=== PATIENT | female | born 1970 | race African-American/Black ===

== ENCOUNTER 2024-11-10 17:31 | Emergency (ER) | payer OTHER, MEDICAID ==
[~2024-11-10] VITALS: Ht 170.2 cm; Wt 87.0 kg
[2024-11-10] MEDS: ACETAMINOPHEN 325 MG TAB PO ONE (19:20)
[2024-11-10] MEDS ORDERED: ACET500T58 PO (19:21)
[2024-11-10] MEDS ORDERED: CYCL-837 PO (19:21)
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
--- NOTE | 2024-11-10 20:22 | DVH ---
EXAM: CT HEAD WITHOUT CONTRAST INDICATION: head injury TECHNIQUE: CT of the head without intravenous contrast. Radiation Dose Information: CT Dose: CTDI volume is 21.13 mGy. Dose-length product is 1589.92 mGy*cm The dose indicators for CT are the volume Computed Tomography (CT) Dose Index (CTDIvol) and the Dose Length Product (DLP), and are measured in units of mGy and mGy-cm, respectively. These indicators are not patient dose, but values generated from the CT scanner acquisition factors. The report includes radiation exposure data for exposures received during this examination. COMPARISON: None FINDINGS: There is no evidence of acute intracranial hemorrhage, extra-axial collection, mass effect, midline s hift, herniation or hydrocephalus. Area of encephalomalacia in the left posterior temporoparietal lobe consistent with old infarct. Ther e is also a area encephalomalacia in the mid left parietal lobe. The ventricles, sulci and cisterns are age appropriate. The meek-white differentiation is intact. Patchy periventricular and subcortical white matter hypoattenuation is nonspecific but may be related to small vessel ischemic disease. The visualized paranasal sinuses and mastoid air cells are clear. The surrounding soft tissues and osseous structures are unremarkable. IMPRESSION: 1. No acute intracranial hemorrhage. 2. Area of encephalomalacia mid left parietal lobe and left posterior temporal parietal lobe most lik no old infarct. There are no prior studies for comparison.
--- NOTE | 2024-11-10 20:41 | DVH ---
EXAM: CT CERVICAL WITHOUT CONTRAST INDICATION: neck pain EXAM DATE: 11/10/2024 07:23 PM COMPARISON: None TECHNIQUE: Multiple axial CT images of the cervical spine were obtained using bone algorithm. Axial a nd coronal reformatting was done. Bone and soft tissue windows were reviewed. Radiation Dose Information: CT Dose: CTDI volume is 21.13 mGy. Dose-length product is 1589.92 mGy*cm FINDINGS: The cervical alignment is intact. No acute cervical spine fracture is identified. The vertebral body heights are intact. No suspicious osseous lesions are identified. Craniotomy defect in the posterior left parietal skull. There is reversal of the normal cervical lordotic curve with bony spondylosis from C5 through C7. Deg enerative disc changes are also noted worse C5 through C7. There is increased bony density at C3 on the left. There is no prevertebral soft tissue swelling to s uggest acute trauma and hematoma. There is no prevertebral soft tissue swelling. IMPRESSION: 1. Mild compression of C3 on the left and degenerative disc changes. There is degenerative distal adrianne ges at T1 and T2 2. Sclerotic changes to C3 on the left may be due to degenerative joint disease or mild compressive All CT scans at this medical facility are performed using dose modulation techniques as appropriate t o a performed exam including the following: Automated exposure control was utilized; adjustment of th e MA and/or KV according to patient size; and use of iterative reconstruction technique.
[2024-11-10 21:04] VITALS: BP 140/81; PULSE 70; RESP 16; TEMP 98.7; O2SAT 95
--- NOTE | 2024-11-10 21:33 | DVH ---
CLINICAL INDICATION: lumbar back pain TECHNIQUE: 2 radiographic views of the lumbar spine were obtained. Comparison: None FINDINGS/IMPRESSION: 5 [id number] lumbar-type vertebrae. Mild levoconvex curvature of the lumbar spine. The vertebra l body heights are maintained. No evidence of acute traumatic fractures or spondylolisthesis. Small to moderate amount of fecal material within the visualized colon. Status post cholecystectomy.
== END 2024-11-10 21:48 | disposition home or self-care (01) ==
LOC: ER 17:31 → EDBD 17:31 → ER 21:48
DX: S16.1XXA Strain of muscle, fascia and tendon at neck level, initial encounter (principal); S39.012A Strain of muscle, fascia and tendon of lower back, initial encounter; S09.90XA Unspecified injury of head, initial encounter; Z86.73 Personal history of transient ischemic attack (TIA), and cerebral infarction without residual deficits; Z90.49 Acquired absence of other specified parts of digestive tract; Z98.890 Other specified postprocedural states; Z79.899 Other long term (current) drug therapy; Z88.8 Allergy status to other drugs, medicaments and biological substances; V89.2XXA Person injured in unspecified motor-vehicle accident, traffic, initial encounter; Y93.89 Activity, other specified; Y92.89 Other specified places as the place of occurrence of the external cause; Y99.8 Other external cause status
CPT/HCPCS: 70450; 72100; 72125